=== PATIENT | female | born 1955 | race Caucasian/White ===

== ENCOUNTER → 2022-06-02 | Outpatient (CLI) | payer OTHER | LOC: PLD 08:18 → LAB 08:18 → LAB SHORT 08:18 | DX: L82.0 Inflamed seborrheic keratosis (principal) | CPT/HCPCS: 88305 ==

== ENCOUNTER → 2024-05-21 | Outpatient (CLI) | payer MEDICARE, BC ==
[~2024-05-21] MED LIST: AMLO5 PO; ANAS1 PO; IRON18 MG; METF500 PO; VITAMIN C PO; ZESTORETIC 20-251 EA PO
== END ==
LOC: LAB SHORT 18:08 → LAB 18:08
DX: N39.0 Urinary tract infection, site not specified (principal)
CPT/HCPCS: 87077; 87086; 87186

== ENCOUNTER → 2024-06-14 | Outpatient (CLI) | payer MEDICARE, BC | END | disposition home or self-care (01) | LOC: LAB SHORT 18:11 → LAB 18:11 | DX: N39.0 Urinary tract infection, site not specified (principal) | CPT/HCPCS: 87077; 87086; 87186 ==

== ENCOUNTER → 2024-07-03 | Outpatient (CLI) | payer MEDICARE, BC | LOC: LAB SHORT 12:35 → LAB 12:35 | DX: N39.0 Urinary tract infection, site not specified (principal) | CPT/HCPCS: 87077; 87086; 87186 ==

== ENCOUNTER 2024-07-14 10:32 | Day surgery (SDC) | payer MEDICARE, BC ==
[~2024-07-14] VITALS: Ht 167.6 cm; Wt 91.1 kg
[~2024-07-14 10:32] MED LIST changes: +Lactated Ringer's 1,000 ML IV ONE
[2024-07-14] MEDS ORDERED: ATOR20 (11:10)
[2024-07-14] MEDS ORDERED: ANASTROZOLE1 M7 (11:10)
[2024-07-14] MEDS ORDERED: propofoL 50 ML IV ONE (11:51)
[2024-07-14] MEDS ORDERED: Lactated Ringer's 1,000 ML IV ONE (11:54)
[2024-07-14 13:00] VITALS: BP 112/68
== END 2024-07-14 12:55 | disposition home or self-care (01) ==
LOC: ORSCSDS 10:32
PROVIDERS: Specialist
PROC: 0DBL8ZX Excision of Transverse Colon, Via Natural or Artificial Opening Endoscopic, Diagnostic (ICD-10-PCS; principal; 2024-07-14 12:00)
DX: Z15.09 Genetic susceptibility to other malignant neoplasm (principal); Z86.0101 Personal history of adenomatous and serrated colon polyps; Z80.0 Family history of malignant neoplasm of digestive organs; D12.3 Benign neoplasm of transverse colon; K64.8 Other hemorrhoids; K57.30 Diverticulosis of large intestine without perforation or abscess without bleeding; I10 Essential (primary) hypertension; E11.9 Type 2 diabetes mellitus without complications; E78.5 Hyperlipidemia, unspecified; E66.9 Obesity, unspecified; Z68.32 Body mass index [BMI] 32.0-32.9, adult; Z87.891 Personal history of nicotine dependence; Z79.84 Long term (current) use of oral hypoglycemic drugs; Z79.899 Other long term (current) drug therapy
CPT/HCPCS: 82947; 88305; J2704; J7120

== ENCOUNTER → 2024-07-18 | Outpatient (CLI) | payer MEDICARE, BC ==
[~2024-07-18] MED LIST changes: +ANASTROZOLE1 M7; +ATOR20; -Lactated Ringer's 1,000 ML IV ONE
== END | disposition home or self-care (01) ==
LOC: LAB SHORT 11:53 → LAB 11:53
DX: N39.0 Urinary tract infection, site not specified (principal)
CPT/HCPCS: 87077; 87086; 87186

== ENCOUNTER → 2024-08-27 | Outpatient (CLI) | payer MEDICARE, BC | LOC: LAB SHORT 10:11 → LAB 10:11 | DX: N39.0 Urinary tract infection, site not specified (principal) | CPT/HCPCS: 87077; 87086; 87186 ==